=== PATIENT | male | born 1990 | race Caucasian/White ===

== ENCOUNTER 2019-12-18 15:57 | Emergency (ER) | payer SELFPAY ==
[2019-12-18 16:41] VITALS: BP 148/85; PULSE 113; TEMP 99; BMI 33.0
[2019-12-18] MEDS ORDERED: IBUPROFEN 600 MG TABLET (FP) PO ONE ×2 (17:43→18:00)
--- NOTE | 2019-12-18 17:57 | PDOC ---
History of Present Illness - General Chief Complaint: Cold Symptoms Stated Complaint: COLD SYMPTOMS Time Seen by Provider: 12/18/19 17:11 History Source: Patient Exam Limitations: No Limitations - History of Present Illness Initial Comments: 12/18/19 17:53 HISTORY OF PRESENT ILLNESS: 29-year-old male history of tympanostomy tubes who presents emergency department for evaluation of nasal congestion, clogged sensation in his ears, sore throat over the past 5 days. Patient initially took NSAIDs but then took Anya-[place]. He reports symptoms improved after taking the medication but quickly came back in a few hours. Denies any fevers or chills. No recent travel or sick contacts. PAST MEDICAL HISTORY: Denies past medical history SURGICAL HISTORY: Denies ALLERGIES: No known drug allergies REVIEW OF SYSTEMS General/Constitutional: Denies fever. Denies weakness, weight change. HEENT: Denies change in vision. Denies ear pain or discharge. +sore throat. + nasal congestion. +clogged ears Cardiovascular: Denies chest pain or shortness of breath. Respiratory: Moist productive cough. Denies wheezing, or hemoptysis. Gastrointestinal: Denies nausea, vomiting, diarrhea or constipation. Denies rectal bleeding. Genitourinary: Denies dysuria, frequency, or change in urination. Musculoskeletal: Denies myalgias. Denies neck or back pain. Skin and breasts: Denies rash or easy bruising. Neurologic: Denies headache, vertigo, loss of consciousness, or loss of sensation. Psychiatric: Denies depression or anxiety. Endocrine: Denies increased thirst. Denies abnormal weight change. Hematologic/Lymphatic: Denies anemia, easy bleeding, or history of blood clots. Allergic/Immunologic: Denies hives or skin allergy. Denies latex allergy. PHYSICAL EXAM General Appearance: Well-appearing, appropriately dressed. No apparent distress , no intoxication. HEENT: EOMI, PERRLA, normal voice, TMs retracted bilaterally. No conjunctival pallor. No photophobia, scleral icterus. Oropharynx erythematous without lesions or exudate. Cobblestoning noted in the posterior. No nasal discharge present. Tympanostomy tubes present. Neck: Supple. Trachea midline. No tenderness, rigidity, carotid bruit, stridor , or thyromegaly. Nontender anterior cervical lymphadenopathy present. Respiratory/Chest: Lungs CTAB. No shortness of breath, chest tenderness, respiratory distress, accessory muscle use. No crackles, rales, rhonchi, stridor , wheezing, dullness Cardiovascular: RRR. S1, S2. No JVD, murmur, bradycardia, tachycardia. Vascular Pulses: Dorsalis-Pedis (R): 2+, Dorsalis-Pedis (L): 2+ Gastrointestinal/Abdominal: Normal bowel sounds. Abdomen soft, non-distended. No tenderness or rebound tenderness. No organomegaly, pulsatile mass, guarding, hernia, hepatomegaly, splenomegaly. Musculoskeletal/Extremities: Normal inspection. FROM of all extremities, normal capillary refill. Pelvis Stable. No CVA tenderness. No tenderness to extremities, pedal edema, swelling, erythema or deformity. Integumentary: Appropriate color, dry, warm. 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 Fully oriented, alert. Appropriate mood/affect. Motor strength 5/5. No appreciable EOM palsy, facial droop or sensory deficit. Past History - Past Medical History Allergies/Adverse Reactions: Allergies Allergy/AdvReac Type Severity Reaction Status Date / Time No Known Allergies Allergy Verified 12/18/19 17:57 Home Medications: Ambulatory Orders Amoxicillin - [Amoxicillin 500mg Capsule -] 500 mg PO BID #20 capsule 12/18/19 - Psycho Social/Smoking Cessation Hx Smoking History: Never smoked Information on smoking cessation initiated: No Hx Alcohol Use: No Drug/Substance Use Hx: No *Physical Exam - Vital Signs Last Vital Signs Temp Pulse Resp BP Pulse Ox 99.0 F 113 H 18 148/85 98 12/18/19 16:38 12/18/19 16:38 12/18/19 16:38 12/18/19 16:38 12/18/19 16:38 Medical Decision Making - Medical Decision Making 12/18/19 17:56 A/P: 29-year-old male with URI symptoms for the past 4-5 days Rapid strep testing Motrin 600 mg orally now Reassess 12/18/19 17:56 12/18/19 18:14 Rapid strep testing is positive. I will treat the patient with amoxicillin 500 mg twice daily for the next 10 days. Prescription sent to patient's preferred pharmacy. I discussed the physical exam findings, ancillary test results and final diagnoses with the patient. I answered all of the patient's questions. The patient was satisfied with the care received and felt comfortable with the discharge plan and treatment plan. The patient will call their primary care physician within 24 hours to arrange follow-up and will return to the Emergency Department with any new, persistent or worsening symptoms. Portions of this note have been documented using voice recognition software. As a result, errors may occur in the forging machine operator process. Effort has been made to correct all grammatical and forging machine operator error, but some may have been missed which may produce sporadic inaccurate forging machine operator or nonsensical phrases. Discharge - Discharge Information Problems reviewed: Yes Clinical Impression/Diagnosis: Acute streptococcal pharyngitis Condition: Stable Disposition: HOME - Admission No - Additional Discharge Information Prescriptions: Amoxicillin - [Amoxicillin 500mg Capsule -] 500 mg PO BID #20 capsule - Follow up/Referral - Patient Discharge Instructions Additional Instructions: Take amoxicillin as prescribed. Salt water garggles. Throw away your toothbrush in 3 days and start using a new toothbrush. No sharing of drinks, utensils or toothbrushes. Take Motrin as directed by lead warehouse associate's instructions. Return to ED for worsening fevers, worsening sore throat, chest pain, shortness of breath or any other concerns. - Post Discharge Activity
== END 2019-12-18 18:21 | disposition home or self-care (01) ==
LOC: JERFT 15:57
DX: J02.0 Streptococcal pharyngitis (principal); B95.0 Streptococcus, group A, as the cause of diseases classified elsewhere
CPT/HCPCS: 87880; 99283-25

== ENCOUNTER 2022-09-03 15:37 | Emergency (ER) | payer SELFPAY ==
[2022-09-03 16:11] VITALS: BP 124/65; PULSE 61; RESP 20; TEMP 98.3; BMI 27.3
== END 2022-09-03 21:06 | disposition left against medical advice (07) ==
LOC: JERFT 15:37
DX: H92.01 Otalgia, right ear (principal)
CPT/HCPCS: 99281-25